=== PATIENT | female | born 1945 | race African-American/Black ===

== ENCOUNTER 2021-04-26 19:08 | Emergency (ER) | payer OTHER ==
[~2021-04-26] VITALS: Ht 165.1 cm; Wt 59.4 kg
--- NOTE | 2021-04-26 19:30 | NUR ---
PATIENT [id number] FROM HOME C/O LEFT HIP PAIN W/ SHORTENING. PATIENT STATES LEFT NECK PAIN, S/P FALL AFTER EATING DINNER.
[2021-04-26 20:01] LABS: BASOPHILS # (AUTO) 0.1 K/uL (0.0-0.2); BASOPHILS % (AUTO) 1.2 % (0.0-2.0); EOSINOPHILS % (AUTO) 3.3 % (0.0-6.0); HEMATOCRIT 35 % (33-45); HEMOGLOBIN 11.4 g/dL (11.5-14.8); LYMPHOCYTES # (AUTO) 0.6 K/uL (0.8-4.8); LYMPHOCYTES % (AUTO) 8.5 % (20.0-44.0); MEAN CORPUSCULAR HGB CONC 33 g/dl (31.0-36.0); MEAN CORPUSCULAR VOLUME 92 fL (82-100); MONOCYTES # (AUTO) 0.7 K/uL (0.1-1.30); MONOCYTES % (AUTO) 10.3 % (2.0-12.0); NEUTROPHILS % (AUTO) 76.7 % (43.0-81.0); PLATELET COUNT (AUTO) 211 K/uL (150-450); RED BLOOD CELL COUNT(AUTO) 3.84 MIL/uL (4.0-5.2); WHITE BLOOD COUNT (AUTO) 6.5 K/uL (4.3-11.0)
[2021-04-26 20:19] LABS: CALCIUM, SERUM 8.4 mg/dL (8.5-10.1); CARBON DIOXIDE 26 mmol/L (21-32); CHLORIDE 107 mmol/L (98-107); CREATININE 1.5 mg/dL (0.6-1.3); GLUCOSE 137 mg/dL (74-106); POTASSIUM 3.9 mmol/L (3.5-5.1); SODIUM SERUM 141 mmol/L (136-145); UREA NITROGEN, BLOOD 30 mg/dL (7-18)
--- NOTE | 2021-04-26 20:50 | NUR ---
UPDATED DAUGHTER ON PT'S CONDITION
--- NOTE | 2021-04-26 21:05 | NUR ---
[facility] PAGED FOR CT READING
--- NOTE | 2021-04-26 21:13 | NUR ---
CALLED [facility] FOR IMAGING READ
[2021-04-26] MEDS ORDERED: IV NS 0.9% 500 ML BAG IV ONE (21:30)
[2021-04-26] MEDS ORDERED: ACETAMINOPHEN 325 MG TABLET ONE (21:57)
--- NOTE | 2021-04-26 21:58 | NUR ---
Patient discharged to home in stable condition. Written and verbal after care instructions given. Patient verbalizes understanding of instruction.
--- NOTE | 2021-04-26 21:58 | NUR ---
PT IS MEDICALLY STABLE FOR D/C. IV removed. Catheter intact and site benign. Pressure and 4x4 applied to site. No bleeding noted.Patient discharged to home in stable condition. Written and verbal after care instructions given. Patient verbalizes understanding of instruction. Pt was picked up by the daughter
[2021-04-26 21:59] VITALS: BP 150/80
[2021-04-26] MEDS ORDERED: ACETAMINOPHEN 325 MG TABLET PO ONE (22:00)
== END 2021-04-26 21:58 | disposition home or self-care (01) ==
LOC: ER 19:13
DX: M25.552 Pain in left hip (principal); E86.0 Dehydration; N83.202 Unspecified ovarian cyst, left side; D64.9 Anemia, unspecified; I10 Essential (primary) hypertension; G20 Parkinson's disease; M54.2 Cervicalgia; W19.XXXA Unspecified fall, initial encounter; Y93.89 Activity, other specified; Y92.89 Other specified places as the place of occurrence of the external cause; Y99.8 Other external cause status
CPT/HCPCS: 36415; 70450-TC; 71045-TC; 72125-TC; 73700-TC; 80048-TC; 84484-TC; 85025-TC